=== PATIENT | male | born 1960 | race Caucasian/White ===

== ENCOUNTER → 2020-06-01 10:56 | Outpatient (CLI) | payer BC, SELFPAY ==
--- NOTE | ~2020-06-01 | US_ITS ---
EXAMINATION: US soft tissue head and neck DATE: 06/01/2020 11:13 INDICATION: Localized swelling, mass or lump at the upper right neck TECHNIQUE: Multiple grayscale and Doppler ultrasound images of the region of concern at the right upp er neck inferior to the ear were obtained. COMPARISON: None FINDINGS: Cluster of multiple hypoechoic nodules with central echogenic fatty юлия consistent with lymph nodes. The 2 largest measure 2.0 x 0.8 cm and 1.4 x 0.8 cm. These are surrounded by echogenic tissue likely representing the parotid gland. There is a similar cluster of at the time smaller lymph nodes seen a long the posterior inferior margin of the right parotid gland on MRI dated 01/15/2016. IMPRESSION: 1. A few small nodules in the region of the left parotid with configuration favoring enlarged lymph n odes over primary parotid neoplasm. Lymph node enlargement could be reactive or less likely lymphoma or metastatic disease in the appropriate clinical setting. If the clinical history does not support reactive lymphadenopathy would recommend contrast-enhanced neck CT and/or ultrasound guided percutane ous biopsy as clinically indicated. Reviewed, dictated and finalized at location A. IMPRESSION: 1. A few small nodules in the region of the left parotid with configuration fav oring enlarged lymph nodes over primary parotid neoplasm. Lymph node enlargeme nt could be reactive or less likely lymphoma or metastatic disease in the appro priate clinical setting. If the clinical history does not support reactive lymp hadenopathy would recommend contrast-enhanced neck CT and/or ultrasound guided percutaneous biopsy as clinically indicated.
== END ==
PROVIDERS: PCP Student in an Organized Health Care Education/Training Program; Visit Provider Student in an Organized Health Care Education/Training Program
DX: R22.1 Localized swelling, mass and lump, neck (principal)
CPT/HCPCS: 76536

== ENCOUNTER → 2020-06-15 14:09 | Outpatient (CLI) | payer BC, SELFPAY ==
--- NOTE | ~2020-06-15 | CT_ITS ---
EXAMINATION: CT soft tissue neck w con DATE: 06/15/2020 14:42 INDICATION: Right neck mass. TECHNIQUE: Computed tomography (CT) of the neck was performed with 75 mL Omnipaque-350 intravenous co ntrast. Automated exposure control and iterative reconstruction technique were employed. The dose-ludmila gth product was 374.77 mGy-cm. COMPARISON: Ultrasound 06/01/2020 FINDINGS: There is a 2.6 x 1.7 cm mass involving superficial right parotid gland and the overlying francisco bcutaneous fat. There are no pathologically enlarged lymph nodes. There is plaque in the proximal in ternal carotid arteries less than 50% stenosis relative to normal distal artery lumen diameters. Ther e is severe cervical spondylosis. IMPRESSION: 1. 2.6 cm mass involving superficial right parotid gland and the overlying subcutaneous fat. The diff erential diagnosis includes benign mixed tumor, Warthin tumor, and less likely metastatic disease or primary malignancy. Ultrasound-guided fine-needle aspiration is recommended. Reviewed, dictated and finalized at location A. IMPRESSION: 1. 2.6 cm mass involving superficial right parotid gland and the overlying subc utaneous fat. The differential diagnosis includes benign mixed tumor, Warthin t umor, and less likely metastatic disease or primary malignancy. Ultrasound-guid ed fine-needle aspiration is recommended.
[2020-06-15 14:30] LABS: Estimated Glomerular Filt Rate > 60
== END ==
PROVIDERS: PCP Student in an Organized Health Care Education/Training Program; Visit Provider Student in an Organized Health Care Education/Training Program
DX: R22.1 Localized swelling, mass and lump, neck (principal)
CPT/HCPCS: 70491; Q9967

== ENCOUNTER 2021-05-17 15:49 | Emergency (ER) | payer BC, SELFPAY ==
--- NOTE | ~2021-05-17 | XR_ITS ---
XR hand RT min 3V 05/17/2021 16:21 Indication: Right hand pain Procedure: 3 views right hand Comparison: No prior studies for comparison. Findings: There is moderate polyarticular osteoarthritis involving the interphalangeal joints as well as the triscaphe, first carpal metacarpal and first-fourth metacarpal phalangeal joints. No erosive changes. No acute fracture or traumatic malalignment. No significant soft tissue abnormality. Impression: 1: Moderate polyarticular osteoarthritis. Reviewed, dictated and finalized at location A. ORTHOPAEDICS Impression: 1: Moderate polyarticular osteoarthritis.
[2021-05-17 16:00] VITALS: BP 121/74; PULSE 68; RESP 18; TEMP 36.8; O2SAT 100
--- NOTE | 2021-05-17 16:00 | ED.UPPEXIN ---
HPI - Extremity Injury (Upper) General Chief Complaint: Extremity Injury, Upper Stated Complaint: RIGHT HAND SWELLING Time Seen by Provider: 05/17/21 16:05 Source: patient Mode of arrival: ambulatory Limitations: no limitations History of Present Illness HPI narrative: Mr. Germain is a 60-year-old male patient presenting to the clinic today with complaints of right hand swelling times 1 day. He reports no known injury. Has bruising and swelling to the right second metacarpal joint with tenderness to palpation. No history of gout. Denies any recent wounds. Denies fever or chills MD complaint: injury to: hand Onset (ago): unknown Related Data Home Medications Medication Instructions Recorded Confirmed aspirin 05/17/21 atorvastatin 05/17/21 ergocalciferol (vitamin D2) 05/17/21 glipizide mg PO 05/17/21 metformin mg PO 05/17/21 metoprolol succinate PO 05/17/21 tramadol 50 mg DIRECTED 05/17/21 05/17/21 Allergies Allergy/AdvReac Type Severity Reaction Status Date / Time No Known Allergies Allergy Unknown Unverified 06/17/17 11:50 Review of Systems Review of Systems: Pertinent positives per HPI. Patient denies any fever, chills, rash, headache, visual changes, dizziness, cough, runny nose, sore throat, shortness of breath, chest pain, palpitations, nausea, vomiting, diarrhea, constipation, abdominal pain, or any urinary issues. [facility] Social History Social History Smoking status: Former smoker Smoking end date: 03/16/00 Alcohol intake: current Comments At the time of my signature, I reviewed and agree with the nursing past medical, surgical, social, and family history. There is no relevant family history pertinent to the patient complaint. Course Course Emergency Course: Portions of this record may have been created with voice recognition software. Level of Care: Express Care Visit Vital Signs Vital signs: Vital signs reviewed MDM - Extremity Injury (Upper) MDM Narrative Medical decision making narrative: X-ray completed to rule out fracture and this was negative in the clinic. Has osteoarthritis of the second distal metacarpal joint. This appears to be more likely a soft tissue injury due to the bruising. Patient is currently taking a 81 mg aspirin daily due to history of stroke. Differential Diagnosis Differential diagnosis: Likely finger sprain and other (Blood clot, gout, septic arthritis) Medical Records Attestation: I reviewed the patient's medical records. Discharge Plan Discharge Clinical Impression: Soft tissue injury, Osteoarthritis of hand Patient Disposition: Home, Self-Care Condition: Stable Instructions: Osteoarthritis (ED), Swollen Joint (ED) Additional Instructions: Rest, ice, elevate, and compress Jonathan wrap as discussed. Sensation, circulation, and motion within normal limits May take tylenol as needed for pain. Follow up with your PCP in 3 to 5 days if symptoms persist. Prescriptions: No Action atorvastatin 80 mg tablet 80 mg DIRECTED RF: 0 metoprolol succinate 50 mg tablet extended release 24 hr 50 mg PO DIRECTED RF: 0 glipizide 2.5 mg tablet extended release 24 hr 2.5 mg PO DIRECTED RF: 0 aspirin 81 mg tablet,chewable 81 mg DIRECTED RF: 0 ergocalciferol (vitamin D2) 1,250 mcg (50,000 unit) capsule 1,250 mcg DIRECTED RF: 0 metformin 500 mg tablet extended release 24 hr 500 mg PO DIRECTED RF: 0 tramadol 50 mg tablet 50 mg DIRECTED RF: 0 Follow-up/Referrals: UNKNOWN,DOCTOR [Primary Care Provider] - Time of Disposition: 16:40 Quality NIHSS Nursing Documentation ED NIHSS nursing documentation: reviewed/agree
== END 2021-05-17 16:44 | disposition home or self-care (01) ==
PROVIDERS: Emergency Provider Nurse Practitioner Family
DX: S69.91XA Unspecified injury of right wrist, hand and finger(s), initial encounter (principal); X58.XXXA Exposure to other specified factors, initial encounter; M19.041 Primary osteoarthritis, right hand; Z87.891 Personal history of nicotine dependence
CPT/HCPCS: 73130; 99213; G0463

== ENCOUNTER 2021-10-14 07:53 | Outpatient (CLI) | payer BC, SELFPAY | END 2021-10-14 07:54 | disposition home or self-care (01) | LOC: ANHAUDIO 07:55 | PROVIDERS: Visit Provider Otolaryngology | DX: H93.13 Tinnitus, bilateral (principal); H90.3 Sensorineural hearing loss, bilateral | CPT/HCPCS: 92557; 92567 ==